=== PATIENT | female | born 1935 | race Asian ===

== ENCOUNTER 2017-11-28 17:30 | Emergency (ER) | payer OTHER ==
[~2017-11-28] VITALS: Ht 154.9 cm; Wt 63.5 kg
[2017-11-28 17:37] VITALS: Ht 154.9 cm; Wt 63.5 kg
[2017-11-28 19:25] VITALS: BP 165/73
== END 2017-11-28 19:25 | disposition home or self-care (01) ==
LOC: ED 17:30
DX: S20.219A Contusion of unspecified front wall of thorax, initial encounter (principal); S13.4XXA Sprain of ligaments of cervical spine, initial encounter; I10 Essential (primary) hypertension; E78.00 Pure hypercholesterolemia, unspecified; V43.62XA Car passenger injured in collision with other type car in traffic accident, initial encounter; Y93.I9 Activity, other involving external motion; Y92.89 Other specified places as the place of occurrence of the external cause; Y99.8 Other external cause status